=== PATIENT | male | born 1995 | race Hispanic/Latino ===

== ENCOUNTER 2016-06-28 09:00 | Emergency (ER) | payer OTHER ==
[2016-06-28] MEDS ORDERED: Sodium Chloride 0.9% 1,000 ML IV ONE (10:24)
--- NOTE | 2016-06-28 10:28 | C.PDOC ---
History Of Present Illness A 20 year old male, with a history of ADHD, not presently on medication, presents to the emergency room with complaints of intermittent episodes of nausea over the last few weeks. Patient reports constant nausea over the last few days. Patient also notes multiple episodes of vomiting with a occasional bloody streaks, soft stool, and diffuse abdominal pain,worse in epigastric area. Patient denies any recent travel, urinary symptoms, fever, chills, back pain, or any other complaints. Chief Complaint (Nursing): Abdominal Pain History Per: Patient History/Exam Limitations: no limitations Onset/Duration Of Symptoms: Other (Few weeks) Current Symptoms Are (Timing): Still Present Severity: Mild Location Of Pain/Discomfort: Epigastric Quality Of Discomfort: "Pain" Associated Symptoms: Nausea, Vomiting. denies: Fever, Chills, Diarrhea (Soft stool), Back Pain, Urinary Symptoms Exacerbating Factors: None Alleviating Factors: None Recent travel outside of the [place]: No Past Medical History Reviewed: Historical Data, Nursing Documentation, Vital Signs Vital Signs: Last Vital Signs Temp 98.4 F 06/28/16 09:05 Pulse 94 H 06/28/16 09:05 Resp 16 06/28/16 09:05 BP 132/87 06/28/16 09:05 Pulse Ox 97 06/28/16 13:43 - [facility] Procedures INJECT/INFUSE NEC (12/11/12) Family History: States: No Known Family Hx - Social History Hx Alcohol Use: Yes Hx Substance Use: No Review Of Systems Except As Marked, All Systems Reviewed And Found Negative. Constitutional: Negative for: Fever, Chills Cardiovascular: Negative for: Chest Pain Respiratory: Negative for: Shortness of Breath Gastrointestinal: Positive for: Nausea, Vomiting, Abdominal Pain (Epigastric). Negative for: Diarrhea Genitourinary: Negative for: Dysuria, Frequency, Incontinence, Hematuria Skin: Negative for: Rash Neurological: Negative for: Weakness, Numbness Physical Exam - Physical Exam Appears: Non-toxic, No Acute Distress Skin: Normal Color, Warm, Dry, No Rash Head: Atraumatic, Normacephalic Eye(s): bilateral: Normal Inspection Nose: Normal, No Discharge Oral Mucosa: Dry (mild) Throat: Normal, No Erythema, No Exudate Neck: Normal ROM, No Midline Cervical Tenderness, No Paracervical Tenderness, Supple Cardiovascular: Rhythm Regular, No Murmur Respiratory: Normal Breath Sounds, No Rales, No Rhonchi, No Wheezing Gastrointestinal/Abdominal: Bowel Sounds, Soft, Tenderness (Mild epigastric tenderness), No Guarding, No Rebound Extremity: Normal ROM, No Tenderness Neurological/Psych: Oriented x3, Normal Speech, Normal Cognition, Normal Motor, Normal Sensation ED Course And Treatment - Laboratory Results Result Diagrams: 06/28/16 11:16 06/28/16 11:16 O2 Sat by Pulse Oximetry: 97 Progress Note: pt feeling much better after zofran, pepcid and ivf. normal lab work. will d/c pt with zofran and pepcid with pmd f/u after ivf finish. Reevaluation Time: 12:57 Reassessment Condition: Improved Medical Decision Making Medical Decision Making: Plan: -- Labs -- IV fluids -- Pepcid & Zofran 125 pm pt feeling much better after zofran and pepcid, tolerating po, abdomen soft, nd, and nt on re-exam. Disposition Counseled Patient/Family Regarding: Studies Performed, Diagnosis, Need For Followup - Disposition Disposition: HOME/ ROUTINE Disposition Time: 13:40 Condition: IMPROVED Additional Instructions: Drink increased fluids, eat bland foods. Follow up with your doctor. Reutrn to ER for any worsening symptoms, unable to tolerate fluids bymouth. Prescriptions: Famotidine [Pepcid] 20 mg PO DAILY #14 tab Ondansetron ODT [Zofran ODT] 4 mg PO TID #12 odt Instructions: Gastroenteritis (ED) Forms: General Discharge Instructions - Clinical Impression Clinical Impression: Gastroenteritis - Scribe Statement The provider has reviewed the documentation as recorded by the Meghnaiblisset Gonsalves All medical record entries made by the Meghnaiblisset were at my direction and personally dictated by me. I have reviewed the chart and agree that the record accurately reflects my personal performance of the history, physical exam, medical decision making, and the department course for this patient. I have also personally directed, reviewed, and agree with the discharge instructions and disposition.
[2016-06-28] MEDS ORDERED: Sodium Chloride 0.9% 1,000 ML ONE (10:30)
[2016-06-28 11:20] LABS: BASO % 0.3 % (0.0-2.0); EOS # 0.1 K/uL (0.0-0.7); HEMATOCRIT 50.6 % (35.0-51.0); LYMPH % 10.4 % (20.0-40.0); MEAN CELL VOLUME 91.2 fL (80.0-94.0); MEAN PLATELET VOLUME 10.6 fL (7.2-11.7); MONO # 0.4 K/uL (0.0-0.8); NRBC % 0.1 % (0.0-2.0); RED CELL DISTRIBUTION WIDTH 13.2 % (11.5-14.5); WHITE BLOOD COUNT 9.8 K/uL (4.8-10.8)
[2016-06-28 11:32] LABS: GRANULAR CAST 4 /lpf (0-1); RBC URINE < 1 /hpf (0-3); URINE BACTERIA RARE (<OCC); URINE BILIRUBIN NEGATIVE (NEGATIVE); URINE BLOOD NEGATIVE (NEGATIVE); URINE COLOR Yellow (YELLOW); URINE GLUCOSE (UA) NORMAL (Normal); URINE KETONE 1+ mg/dL (NEGATIVE); URINE LEUKOCYTE ESTERASE NEG Leu/uL (Negative); URINE PROTEIN 1+ mg/dL (NEGATIVE); URINE UROBILINOGEN NORMAL mg/dL (0.2-1.0); WBC URINE 1 /hpf (0-5)
[2016-06-28 11:38] LABS: CHLORIDE 99 mmol/L (98-107)
[2016-06-28 11:39] LABS: POTASSIUM 3.8 mmol/L (3.6-5.2); SODIUM 140 mmol/L (132-148)
[2016-06-28 11:41] LABS: BILIRUBIN,TOTAL 1.3 mg/dL (0.2-1.3); GFR AFRICAN-AMERICAN > 60
[2016-06-28 11:42] LABS: ALB/GLOB RATIO 1.5 (1.0-2.1); ALKALINE PHOSPHATASE 53 U/L (38-126); ALT/SGPT 31 U/L (21-72); AST/SGOT 26 U/L (17-59); BLOOD UREA NITROGEN 13 mg/dL (9-20); CALCIUM 9.5 mg/dl (8.6-10.4); CARBON DIOXIDE 27 mmol/L (22-30); GLUCOSE,RANDOM 91 mg/dL (75-110); TOTAL PROTEIN 8.1 g/dL (6.3-8.3)
[2016-06-28] MEDS ORDERED: Dextrose 5%/0.45% NS 1,000 ML IV SCH (12:00)
[2016-06-28 14:00] VITALS: BP 141/85; PULSE 72; RESP 20; TEMP 98.3
[2016-06-28 14:02] VITALS: O2SAT 97
== END 2016-06-28 14:01 | disposition home or self-care (01) ==
LOC: C.ER 09:00
DX: K52.9 Noninfective gastroenteritis and colitis, unspecified (principal)
CPT/HCPCS: 80053; 81001; 83690; 85025; 96361; 96374; 96375; 99284; J2405; J7040; J7042

== ENCOUNTER 2016-07-11 08:21 | Emergency (ER) | payer OTHER ==
[2016-07-11 08:39] VITALS: BMI 31.0
--- NOTE | 2016-07-11 09:14 | C.PDOC ---
History Of Present Illness 21 year old patient presents to the ED complaining of abdominal pain that is worse today. Patient also complains of nausea that begins with waking up and remains intermittent throughout the day. This has been ongoing for the past few days. He notes he vomited yesterday and today he had clear vomitus with a few streaks of blood. He tried Pepto Bismol and some OTC medications with minimal relief. Patient was seen in the ED on 06/28/16 for abdominal pain, nausea and vomiting. He was discharged with Pepcid and Zofran, but he didn't fill his prescriptions. Patient denies fever, chills, or diarrhea. Time Seen by Provider: 07/11/16 08:34 Chief Complaint (Nursing): Abdominal Pain History Per: Patient History/Exam Limitations: no limitations Onset/Duration Of Symptoms: Days (past few days), Worse Since (today) Context: Other Severity: Mild Pain Scale Rating Of: 3 Location Of Pain/Discomfort: Diffuse Radiation Of Pain To:: None Quality Of Discomfort: "Pain" Associated Symptoms: Nausea, Vomiting Exacerbating Factors: None Alleviating Factors: None Last Bowel Movement: Today Recent travel outside of the [place]: No Additional History Per: Prior Records Past Medical History Reviewed: Historical Data, Nursing Documentation, Vital Signs Vital Signs: Last Vital Signs Temp 98.9 F 07/11/16 11:15 Pulse 57 L 07/11/16 11:15 Resp 18 07/11/16 11:15 BP 133/77 07/11/16 11:15 Pulse Ox 100 07/11/16 12:04 - Medical History PMH: Asthma - [facility] Procedures INJECT/INFUSE NEC (12/11/12) Family History: States: Unknown Family Hx - Social History Hx Alcohol Use: Yes Hx Substance Use: Yes - Immunization History Hx Tetanus Toxoid Vaccination: No Hx Influenza Vaccination: No Hx Pneumococcal Vaccination: No Review Of Systems Except As Marked, All Systems Reviewed And Found Negative. Constitutional: Negative for: Fever, Chills Gastrointestinal: Positive for: Nausea, Vomiting, Abdominal Pain. Negative for : Diarrhea Physical Exam - Physical Exam Appears: Non-toxic, No Acute Distress Skin: Warm, Dry Head: Atraumatic, Normacephalic Oral Mucosa: Moist Neck: Normal ROM, Supple Chest: Symmetrical Cardiovascular: Rhythm Regular Respiratory: Normal Breath Sounds, No Rales, No Rhonchi, No Wheezing Gastrointestinal/Abdominal: Bowel Sounds (normal), Soft, Tenderness (RUQ), No Guarding, No Rebound, No Other (Adkins's sign) Back: Normal Inspection Extremity: Normal ROM Neurological/Psych: Oriented x3 Gait: Steady ED Course And Treatment - Laboratory Results Result Diagrams: 07/11/16 09:29 07/11/16 09:29 O2 Sat by Pulse Oximetry: 100 (room air) Pulse Ox Interpretation: Normal - CT Scan/US Abdomen US Other Rad Studies (CT/US): Read By Radiologist (Cathy Lima MD), Radiology Report Reviewed CT/US Interpretation: HISTORY: abd pain ruq. COMPARISON: None available. TECHNIQUE: Sonographic evaluation of the right upper quadrant of the abdomen. FINDINGS: LIVER: Measures 14.1 cm in length and appears within normal limits of size, shape, and echotexture. No focal hepatic mass identified. The main portal vein appears patent with normal directional flow. No intrahepatic bile duct dilatation. GALLBLADDER: No gallstones. No gallbladder wall thickening or pericholecystic edema. Negative sonographic Adkins's sign as assessed by the enamel dipper. COMMON BILE DUCT: Measures 4 mm. No stones. No dilatation. PANCREAS: Not well-visualized. RIGHT KIDNEY: Measures 11.1 x 3.6 x 4.5 cm. No obstructing calculus or hydronephrosis identified. AORTA: Limited visualization appears grossly unremarkable. IVC: Limited visualization appears grossly unremarkable. OTHER FINDINGS: None . IMPRESSION: Unremarkable right upper quadrant ultrasound as above. Progress Note: Plan: Labs, Zofran, Abdomen ultrasound. Upon reassessment, patient is resting comfortably and patient is tolerating PO. Patient feels comfortable going home. Patient will be discharged home. Follow up with PMD. Return if symptoms worsen. Medical Decision Making Medical Decision Making: pt feeling better, no longer nauseous. lab and us results discussed with pt; pt to go for outpatient gi workup, has rx for zofran. Disposition Counseled Patient/Family Regarding: Diagnosis, Need For Followup - Disposition Referrals: Agustín Bell MD [Staff Provider] - [facility] [Outside] at [facility] [Outside] Disposition: HOME/ ROUTINE Disposition Time: 11:10 Condition: IMPROVED Additional Instructions: Follow up in Medical Clinic and with Dr Bell (Gastroenterology). Call [facility] service if you have any trouble making a gi appointment. Keep diary of food eaten to see in anything in particular makes you feel unwell. Forms: General Discharge Instructions - Clinical Impression Clinical Impression: Nausea & vomiting - PA / PER ASSESSMENT NURSE / Resident Statement MD/DO has reviewed & agrees with the documentation as recorded. - Scribe Statement The provider has reviewed the documentation as recorded by the Scribe Naila Kimbrough All medical record entries made by the Scribe were at my direction and personally dictated by me. I have reviewed the chart and agree that the record accurately reflects my personal performance of the history, physical exam, medical decision making, and the department course for this patient. I have also personally directed, reviewed, and agree with the discharge instructions and disposition.
[2016-07-11 09:43] LABS: MEAN PLATELET VOLUME 11.1 fL (7.2-11.7); MONO # 0.5 K/uL (0.0-0.8)
[2016-07-11 09:44] LABS: CHLORIDE 102 mmol/L (98-107); POTASSIUM 3.9 mmol/L (3.6-5.2); SODIUM 139 mmol/L (132-148)
[2016-07-11 09:46] LABS: AST/SGOT 21 U/L (17-59); BILIRUBIN,TOTAL 0.9 mg/dL (0.2-1.3); CARBON DIOXIDE 25 mmol/L (22-30); GFR AFRICAN-AMERICAN > 60
[2016-07-11 09:47] LABS: ALB/GLOB RATIO 1.5 (1.0-2.1); ALKALINE PHOSPHATASE 46 U/L (38-126); ALT/SGPT 22 U/L (21-72); BLOOD UREA NITROGEN 11 mg/dL (9-20); CALCIUM 8.7 mg/dl (8.6-10.4); GLUCOSE,RANDOM 90 mg/dL (75-110); TOTAL PROTEIN 6.8 g/dL (6.3-8.3)
[2016-07-11 09:52] LABS: BASO % 0.6 % (0.0-2.0); EOS # 0.2 K/uL (0.0-0.7); EOS % 2.5 % (0.0-4.0); HEMATOCRIT 45.4 % (35.0-51.0); LYMPH # 1.3 K/uL (1.0-4.3); LYMPH % 21.4 % (20.0-40.0); MEAN CELL VOLUME 89.5 fL (80.0-94.0); MEAN CORPUSCULAR HEMOGLOBIN 30.7 pg (27.0-31.0); MEAN CORPUSCULAR HGB CONC 34.3 g/dL (33.0-37.0); MONO % 7.8 % (0.0-10.0); NRBC % 0.2 % (0.0-2.0)
--- NOTE | 2016-07-11 10:20 | US ---
HISTORY: abd pain ruq COMPARISON: None available. TECHNIQUE: Sonographic evaluation of the right upper quadrant of the abdomen. FINDINGS: LIVER: Measures 14.1 cm in length and appears within normal limits of size, shape, and echotexture. No focal hepatic mass identified. The main portal vein appears patent with normal directional flow. No intrahepatic bile duct dilatation. GALLBLADDER: No gallstones. No gallbladder wall thickening or pericholecystic edema. Negative sonographic Adkins's sign as assessed by the negative spotter. COMMON BILE DUCT: Measures 4 mm. No stones. No dilatation. PANCREAS: Not well-visualized. RIGHT KIDNEY: Measures 11.1 x 3.6 x 4.5 cm. No obstructing calculus or hydronephrosis identified. AORTA: Limited visualization appears grossly unremarkable. IVC: Limited visualization appears grossly unremarkable. OTHER FINDINGS: None . IMPRESSION: Unremarkable right upper quadrant ultrasound as above.
[2016-07-11 11:15] VITALS: BP 133/77; PULSE 57; RESP 18; TEMP 98.9
[2016-07-11 11:39] VITALS: O2SAT 100
== END 2016-07-11 11:33 | disposition home or self-care (01) ==
LOC: C.ER 08:21
DX: R11.2 Nausea with vomiting, unspecified (principal); R10.11 Right upper quadrant pain
CPT/HCPCS: 76705; 80053; 83690; 85025; 96374; 99284; J2405